=== PATIENT | female | born 1985 | race Caucasian/White ===

== ENCOUNTER 2017-07-27 12:53 | Emergency (ER) | payer SELFPAY ==
[~2017-07-27] VITALS: Ht 157.5 cm; Wt 75.0 kg
[2017-07-27 12:55] VITALS: BP 115/69; PULSE 77; RESP 18; TEMP 98.8; O2SAT 100
--- NOTE | 2017-07-27 13:29 | PD ---
HPI Chief Complaint: Oral / Dental Pain or Problem Time Seen by Provider: 13:21 Travel History International Travel<30 days: No Contact w/Intl Traveler<30days: No Traveled to known affect area: No History of Present Illness HPI 32 year-old female presents to prescribe it for evaluation of dental pain. Patient states that it is around her left maxillary first bicuspid. Patient denies any trauma. States that the pain got significantly worse yesterday. Rates it as severe, constant, throbbing. Denies any fever or chills. She has no other symptoms to report. PFSH Past Medical History Medical History: Denies Significant Hx ?: Not Social History Alcohol Use: No Tobacco Use: No Substance Use: No Allergies-Medications (Allergen,Severity, Reaction): Coded Allergies: No Known Allergies (Unverified , 07/27/17) Reported Meds & Prescriptions Reported Meds & Active Scripts Active Ultram (Tramadol HCl) 50 Mg Tab 50 Mg PO Q8H PRN Ibuprofen 600 Mg Tab 600 Mg PO Q8HR PRN Penicillin V Potassium 500 Mg Tab 500 Mg PO Q6H 10 Days Review of Systems Except as stated in HPI: all other systems reviewed are Neg Physical Exam Narrative GENERAL: Well-nourished, well-developed female patient in no acute distress SKIN: Focused skin assessment warm/dry. HEAD: Normocephalic. Without erythema or edema EYES: No scleral icterus. No injection or drainage. DENTAL: No loose or chipped teeth. Patient has generalized poor dentition. She is missing the left maxillary first bicuspid. No abscess is appreciated. Gingiva is reddened and swollen. No malocclusion. NECK: Supple, trachea midline. No JVD or lymphadenopathy. CARDIOVASCULAR: Regular rate and rhythm without murmurs, gallops, or rubs. RESPIRATORY: Breath sounds equal bilaterally. No accessory muscle use. GASTROINTESTINAL: Abdomen soft, non-tender, nondistended. MUSCULOSKELETAL: No cyanosis, or edema. BACK: Nontender without obvious deformity. No CVA tenderness. Data Data Last Documented VS Vital Signs Date Time Temp Pulse Resp B/P (MAP) Pulse Ox O2 Delivery O2 Flow Rate FiO2 07/27/17 13:35 07/27/17 12:55 98.8 77 18 100 Room Air MDM Medical Decision Making Medical Screen Exam Complete: Yes Emergency Medical Condition: Yes Medical Record Reviewed: Yes Differential Diagnosis Dental caries versus pulpitis versus gingivitis versus periodontal disease versus dental abscess Narrative Course 32-year-old female presents to emergency department for evaluation of dental pain. Patient is missing the left maxillary first bicuspid. The gingiva is erythematous surrounding this area but I do not see any definite abscess. Patient be started on oral antibiotic of 5 pain control. She is encouraged to seek dental evaluation. She agrees to return immediately with any acute worsening of symptoms. Diagnosis Primary Impression: Dentalgia Additional Impression: Dental caries Referrals: Dentist Primary Care Physician Patient Instructions: Dental Caries (ED), General Instructions Additional Instructions: Follow up with a primary care provider Seek dental evaluation Return to ED with acute worsening of symptoms Med/Other Pt SpecificInfo: Prescription(s) given Scripts Tramadol (Ultram) 50 Mg Tab 50 MG PO Q8H Y for PAIN GREATER THAN 7, #20 TAB 0 Refills Prov: Laurie Davis 07/27/17 Ibuprofen (Ibuprofen) 600 Mg Tab 600 MG PO Q8HR Y for PAIN, #30 TAB 0 Refills Prov: Laurie Davis 07/27/17 Penicillin V Potassium (Penicillin V Potassium) 500 Mg Tab 500 MG PO Q6H for Infection for 10 Days, #40 TAB 0 Refills Prov: Laurie Davis 07/27/17 Disposition: 01 DISCHARGE HOME Condition: Stable Laurie Davis Jul 27, 2017 13:29
[2017-07-27] MEDS ORDERED: IBUP-232 PO (13:41)
[2017-07-27] MEDS ORDERED: PENI500T PO (13:41)
[2017-07-27] MEDS ORDERED: ULTR50TA5 PO (13:41)
== END 2017-07-27 13:37 | disposition home or self-care (01) ==
LOC: NEPK 12:53
DX: K02.9 Dental caries, unspecified (principal)
CPT/HCPCS: 99284

== ENCOUNTER 2018-03-02 16:42 | Emergency (ER) | payer MEDICAID ==
[~2018-03-02] VITALS: Ht 160 cm; Wt 63.5 kg
[~2018-03-02 16:42] MED LIST: IBUP-232 PO; PENI500T PO; TRAM50 PO
[2018-03-02 16:44] VITALS: BP 125/57; PULSE 65; RESP 18; TEMP 97.9; O2SAT 100
[2018-03-02] MEDS ORDERED: PENI500T PO (16:55)
[2018-03-02] MEDS ORDERED: MAGICADU2 SWISH-SWAL (16:55)
--- NOTE | 2018-03-02 17:01 | PD ---
HPI Chief Complaint: Oral / Dental Pain or Problem Time Seen by Provider: 16:48 Travel History International Travel<30 days: No Contact w/Intl Traveler<30days: No Traveled to known affect area: No History of Present Illness HPI 33-year-old female presents to the emergency room for evaluation of bilateral dental pain that started yesterday. Patient states symptoms started on the left and has since spread to the right. She reports white plaques around her gumline that she tried to wipe away and was unable to. States most the pain is localized to her gumline. Burning in nature. Worse with eating or drinking. She has been taking [id number] ibuprofen with moderate relief in symptoms. No fever, chills, nausea, vomiting, or dental drainage. No chronic medical conditions or daily medications. She does have history of Hodgkin's lymphoma. She does not have a dentist in the area. PFSH Past Medical History ?: Not LMP: 03/02/18 Social History Alcohol Use: No Tobacco Use: No Substance Use: No Allergies-Medications (Allergen,Severity, Reaction): Coded Allergies: No Known Allergies (Unverified , 07/27/17) Reported Meds & Prescriptions Reported Meds & Active Scripts Active Ultram (Tramadol HCl) 50 Mg Tab 50 Mg PO Q8H PRN Ibuprofen 600 Mg Tab 600 Mg PO Q8HR PRN Penicillin V Potassium 500 Mg Tab 500 Mg PO Q6H 10 Days Review of Systems Except as stated in HPI: all other systems reviewed are Neg Physical Exam Narrative GENERAL: Well-nourished, well-developed female no acute distress. Afebrile. Ambulatory. SKIN: Focused skin assessment warm/dry. HEAD: Normocephalic. EYES: No scleral icterus. No injection or drainage. NECK: Supple, trachea midline. No JVD or lymphadenopathy. DENTAL: Moderate decay throughout. No loose or chipped teeth. No malocclusion. There is white plaque around the gingiva on the right upper teeth. No erythema. No facial induration or edema. No obvious abscess. CARDIOVASCULAR: Regular rate and rhythm without murmurs, gallops, or rubs. RESPIRATORY: Breath sounds equal bilaterally. No accessory muscle use. Data Data Last Documented VS Vital Signs Date Time Temp Pulse Resp B/P (MAP) Pulse Ox O2 Delivery O2 Flow Rate FiO2 03/02/18 16:44 97.9 65 18 125/57 79 100 MDM Medical Decision Making Medical Screen Exam Complete: Yes Emergency Medical Condition: Yes Medical Record Reviewed: Yes Differential Diagnosis Thrush, oral cancer, dentalgia, dental caries, leukoplakia Narrative Course 33-year-old female presents to the emergency room for evaluation of bilateral dental pain for the past day. Started on the left and moved to the right. Physical exam reveals white plaque around the gingiva on the right upper teeth. No erythema. No facial induration or edema. No obvious abscess. No evidence of Braydon's angina. Patient was informed this is likely caused by gingivitis, thrush, or dental abscess that was instructed that she will need follow-up if her symptoms do not resolve with the medications as it could be oral cancer. A financial counselor spoke to the patient about establishing insurance for follow-up care. She will take medication as directed and return as needed for worsening symptoms. She understands and agrees to plan. Diagnosis Primary Impression: Dentalgia Additional Impression: Thrush Referrals: Primary Care Physician Additional Instructions: Penicillin as directed, until gone. Use Magic mouthwash twice daily for 2 weeks. If your symptoms have not resolved in 2 weeks, follow-up with a dentist or ENT. Return as needed for worsening symptoms. Med/Other Pt SpecificInfo: Prescription(s) given Scripts Penicillin V Potassium (Penicillin V Potassium) 500 Mg Tab 500 MG PO Q8H for Infection for 7 Days, #21 TAB 0 Refills Prov: Mevrat Madsen DO 03/02/18 Enrogqqp-Kpnmatawdidlzed-[place]ylascdn Liq (Magic Mouthwash Adult Liq) 120 Ml Susp 5 ML SWISH-SWAL ACHS for Mouth sores, #120 ML 0 Refills Each 5mL contains: Nystatin 200,000units, Diphenhydramine 4.25mg, Viscous Lidocaine 10mg, Alegre syrup 0.8 mL Prov: Mervat Madsen DO 03/02/18 Disposition: 01 DISCHARGE HOME Condition: Stable Rashmi Moreira March 02, 2018 17:01
== END 2018-03-02 17:29 | disposition home or self-care (01) ==
LOC: NEPK 16:42
DX: K08.89 Other specified disorders of teeth and supporting structures (principal); B37.9 Candidiasis, unspecified
CPT/HCPCS: 99283